=== PATIENT | male | born 1945 | race Caucasian/White ===

== ENCOUNTER 2022-06-29 10:41 | Emergency (ER) | payer MEDICARE, OTHER ==
[2022-06-29] MEDS: Rabies Immune Globulin/PF (HyperRAB) 300 UNIT/ML 5 ML SDV IM ONE ×2 (11:04→11:20)
[2022-06-29] MEDS: Rabies Immune Globulin/PF (HyperRAB) 300 UNIT/ML 1 ML SDV IM ONE (11:04)
[2022-06-29] MEDS: Rabies Vaccine (Avian) 2.5 Unit Inj Kit IM ONE (11:07)
[2022-06-29] MEDS: Diphtheria,Pertussis(Acell),Tetanus Vaccine 0.5 ML Syringe IM ONE (11:17)
== END 2022-06-29 12:05 | disposition home or self-care (01) ==
LOC: KA.ED 10:41
DX: S41.052A Open bite of left shoulder, initial encounter (principal); Z29.14 Encounter for prophylactic rabies immune globulin; W55.81XA Bitten by other mammals, initial encounter
CPT/HCPCS: 90375; 90471; 90675; 90715; 96372; 99283; 99283-25

== ENCOUNTER 2023-11-13 17:22 | Inpatient (IN) | payer MEDICARE, OTHER ==
[2023-11-13] MEDS ORDERED: Sodium Chloride 0.9% 10 ML Syringe FLUSH PRN (18:27)
[2023-11-13] MEDS ORDERED: Ondansetron 4 MG/2 ML SDV IV PRN (18:27)
[2023-11-13] MEDS ORDERED: Morphine 2 MG/ML SYRINGE IVPUSH PRN (18:27)
[2023-11-13] MEDS: Sodium Chloride 0.9% 1,000 ML IV SCH (18:42)
[2023-11-13 19:08] LABS: BASOPHILS ABSOLUTE AUTO 0.01 10^3/uL (0.00-0.10); BASOPHILS PERCENT AUTO 0.1 % (0.0-1.0); EOSINOPHILS ABSOLUTE AUTO 0.01 10^3/uL (0.10-0.30); EOSINOPHILS PERCENT AUTO 0.1 % (1.0-3.0); HEMATOCRIT 47.7 % (40.0-52.0); HEMOGLOBIN 15.6 g/dL (13.0-17.0); IMMATURE GRAN ABSOLUTE AUTO 0.01 10^3/uL (0.00-0.50); IMMATURE GRAN PERCENT AUTO 0.1 % (0.0-5.0); LYMPHOCYTES PERCENT AUTO 9.3 % (20.0-40.0); MEAN CORPUSCULAR HEMOGLOBIN 27.6 pg (27.0-31.0); MEAN CORPUSCULAR HGB CONC 32.7 g/dL (32.0-36.0); MEAN CORPUSCULAR VOLUME 84.4 fL (82.0-92.0); MEAN PLATELET VOLUME 9.2 fL (7.4-10.4); MONOCYTES ABSOLUTE AUTO 0.75 10^3/uL (0.10-0.80); MONOCYTES PERCENT AUTO 5.4 % (2.0-8.0); NEUTROPHILS ABSOLUTE AUTO 11.93 10^3/uL (2.50-7.00); PLATELET COUNT,PLT 175 10^3/uL (150-400); RED BLOOD CELL COUNT 5.65 10^6/uL (4.50-6.00); RED CELL DISTRIBUTION WIDTH 14.2 % (11.5-14.5); WHITE BLOOD CELL COUNT,WBC 14.01 10^3/uL (5.00-10.00)
[2023-11-13 19:12] LABS: APPEARANCE,URINE CLEAR (CLEAR); BILIRUBIN,URINE NEGATIVE (NEGATIVE); COLOR,URINE YELLOW (YELLOW); GLUCOSE,URINE NEGATIVE (NEGATIVE); KETONES,URINE 15 mg/dL (NEGATIVE); LEUKOCYTE ESTERASE,URINE NEGATIVE (NEGATIVE); NITRITE,URINE NEGATIVE (NEGATIVE); OCCULT BLOOD,URINE NEGATIVE (NEGATIVE); PROTEIN,URINE NEGATIVE (NEGATIVE); UROBILINOGEN,URINE 0.2 E.U./dL (0.2-1.0)
[2023-11-13 19:23] LABS: ALBUMIN 3.41 g/dL (3.40-5.00); ANION GAP 13.1 mmol/L (5-15); BILIRUBIN TOTAL 0.8 mg/dL (0.2-1.0); C-REACTIVE PROTEIN 3.54 mg/dL (0.00-0.50); CALCIUM 8.7 mg/dL (8.7-10.3); CARBON DIOXIDE,CO2 26.5 mmol/L (21.0-32.0); CREATININE 0.96 mg/dL (0.51-1.17); EST CRCL DRUG DOSING (CG) 56.05 mL/min; MAGNESIUM 1.6 mg/dL (1.8-2.4); POTASSIUM,K 4.6 mmol/L (3.5-5.1); PROTEIN TOTAL,TP 7.1 g/dL (6.4-8.2)
[2023-11-14 07:43] LABS: BASOPHILS ABSOLUTE AUTO 0.01 10^3/uL (0.00-0.10); BASOPHILS PERCENT AUTO 0.1 % (0.0-1.0); EOSINOPHILS ABSOLUTE AUTO 0.05 10^3/uL (0.10-0.30); EOSINOPHILS PERCENT AUTO 0.6 % (1.0-3.0); HEMATOCRIT 44.3 % (40.0-52.0); HEMOGLOBIN 14.3 g/dL (13.0-17.0); IMMATURE GRAN ABSOLUTE AUTO 0.01 10^3/uL (0.00-0.50); IMMATURE GRAN PERCENT AUTO 0.1 % (0.0-5.0); LYMPHOCYTES ABSOLUTE AUTO 1.38 10^3/uL (1.00-4.00); LYMPHOCYTES PERCENT AUTO 15.4 % (20.0-40.0); MEAN CORPUSCULAR HEMOGLOBIN 27.6 pg (27.0-31.0); MEAN CORPUSCULAR HGB CONC 32.3 g/dL (32.0-36.0); MEAN CORPUSCULAR VOLUME 85.5 fL (82.0-92.0); MEAN PLATELET VOLUME 8.8 fL (7.4-10.4); MONOCYTES ABSOLUTE AUTO 0.56 10^3/uL (0.10-0.80); MONOCYTES PERCENT AUTO 6.2 % (2.0-8.0); NEUTROPHILS ABSOLUTE AUTO 6.97 10^3/uL (2.50-7.00); NEUTROPHILS PERCENT AUTO 77.6 % (50.0-70.0); PLATELET COUNT,PLT 141 10^3/uL (150-400); RED BLOOD CELL COUNT 5.18 10^6/uL (4.50-6.00); RED CELL DISTRIBUTION WIDTH 14.4 % (11.5-14.5); WHITE BLOOD CELL COUNT,WBC 8.98 10^3/uL (5.00-10.00)
[2023-11-14 07:59] LABS: HEMOGLOBIN A1C 5.6 % (4.3-5.7)
[2023-11-14 08:08] LABS: ALBUMIN 2.69 g/dL (3.40-5.00); ANION GAP 10.2 mmol/L (5-15); BILIRUBIN TOTAL 1.1 mg/dL (0.2-1.0); CALCIUM 8.1 mg/dL (8.7-10.3); CARBON DIOXIDE,CO2 29.3 mmol/L (21.0-32.0); CREATININE 1.07 mg/dL (0.51-1.17); EST CRCL DRUG DOSING (CG) 50.29 mL/min; MAGNESIUM 1.7 mg/dL (1.8-2.4); POTASSIUM,K 4.5 mmol/L (3.5-5.1); PROTEIN TOTAL,TP 6.1 g/dL (6.4-8.2); TSH ULTRASENSITIVE 2.89 uIU/mL (0.340-4.820)
[2023-11-14] MEDS: Magnesium Oxide 500 MG Tab PO ONE (09:26)
[2023-11-14] MEDS: Psyllium Husk Powder Sugar Free 5.85 GM Packet PO SCH (13:52)
[2023-11-14] MEDS: Docusate Sodium 100 MG Cap PO PRN (21:12)
[2023-11-15 08:02] LABS: ANION GAP 12.4 mmol/L (5-15); CALCIUM 8.3 mg/dL (8.7-10.3); CREATININE 0.91 mg/dL (0.51-1.17); EST CRCL DRUG DOSING (CG) 59.13 mL/min; MAGNESIUM 1.9 mg/dL (1.8-2.4); POTASSIUM,K 4.4 mmol/L (3.5-5.1)
== END 2023-11-15 11:08 | disposition home or self-care (01) | DRG 389 ==
LOC: UNDOADMIN 17:22 → KA.MS 17:22
PROVIDERS: ADMIT Family Medicine; ATTEND Family Medicine
DX: K56.609 Unspecified intestinal obstruction, unspecified as to partial versus complete obstruction (principal); N17.9 Acute kidney failure, unspecified; E86.0 Dehydration; H91.90 Unspecified hearing loss, unspecified ear; H54.7 Unspecified visual loss; E78.00 Pure hypercholesterolemia, unspecified; N40.0 Benign prostatic hyperplasia without lower urinary tract symptoms; D72.829 Elevated white blood cell count, unspecified; Z79.899 Other long term (current) drug therapy; Z87.01 Personal history of pneumonia (recurrent); Z85.820 Personal history of malignant melanoma of skin
CPT/HCPCS: 36415; 74018; 80048; 80053; 80061; 81003; 83036; 83735; 84443; 85025; 86140; 99223-GT; 99233-GT; 99239-GT; A9270-GY; J7030; Q3014